=== PATIENT | male | born 1985 | race Caucasian/White ===

== ENCOUNTER 2021-01-11 05:38 | Outpatient (CLI) | payer BC ==
[~2021-01-11] VITALS: Ht 175.3 cm; Wt 90.8 kg
== END 2021-01-11 11:34 | disposition home or self-care (01) ==
LOC: PREOP 05:38
PROVIDERS: ATTEND Otolaryngology Otolaryngology/Facial Plastic Surgery
DX: Z01.818 Encounter for other preprocedural examination (principal)

== ENCOUNTER 2021-01-18 06:22 | Day surgery (SDC) | payer BC ==
[~2021-01-18] VITALS: Ht 175.3 cm; Wt 90.8 kg
[2021-01-18] VITALS (10 sets, daily range): BP systolic 105–138; BP diastolic 59–92
[2021-01-18] MEDS ORDERED: HYDROCORTISONE 100 MG/2 ML (Solu-CORTEF) VIAL IV ONE (07:00)
[2021-01-18] MEDS ORDERED: LACTATED RINGERS 1,000 ML IV PRN (07:00)
[2021-01-18] MEDS ORDERED: AMPICILLIN/SULBACTAM INJECTION 1.5 GM in NS (IVPB) 100 ML IV ONE (07:00)
[2021-01-18] MEDS ORDERED: LIDOCAINE/EPI 1%-1:100,000 (XYLOCAINE) 20ML ONE (07:03)
[2021-01-18] MEDS ORDERED: BSS 15 ML ONE (07:03)
[2021-01-18] MEDS ORDERED: PHENYLEPHRINE 0.5% NASAL SPR (NEO-SYNEPHRINE) REG ONE ×2 (07:03→10:15)
[2021-01-18] MEDS ORDERED: COCAINE HCL 4% 2 ML SYR ONE (07:03)
--- NOTE | 2021-01-18 07:05 | Progress Note-Pre Operative ---
Pre-Operative Progress Note H&P Reviewed The H&P was reviewed, patient examined and no changes noted. Date Seen by Provider: Jan 18, 2021 Time Seen by Provider: 06:30 Date H&P Reviewed: Jan 18, 2021 Time H&P Reviewed: 06:30 Pre-Operative Diagnosis: Right Chronic Sinusitis with Nasal Polyps, Hyper of Right INf Turb KATHARINA RUTLEDGE MD Jan 18, 2021 07:04
[2021-01-18] MEDS ORDERED: ONDANSETRON 4 MG/2 ML (SDV) Z0FRAN ONE (07:07)
[2021-01-18] MEDS ORDERED: fentaNYL INJ 100 MCG/2 ML AMP ONE (07:07)
[2021-01-18] MEDS ORDERED: LIDOCAINE PF 2% 5 ML (XYLOCAINE) VIAL ONE (07:07)
[2021-01-18] MEDS ORDERED: ROCURONIUM 10 MG/ML 5 ML SYRINGE IV ONE (07:07)
[2021-01-18] MEDS ORDERED: proPOfol 200 MG/20 ML (DIPRIVAN) VIAL IV ONE (07:07)
[2021-01-18] MEDS ORDERED: MIDAZOLAM 2 MG/2 ML (VERSED) VIAL ONE (07:07)
[2021-01-18] MEDS ORDERED: GLYCOPYRROLATE 0.2 MG/ML (ROBINUL) 2 ML VIAL ONE (08:09)
[2021-01-18] MEDS ORDERED: NEOSTIGMINE 3 MG/3 ML VIAL ONE (08:09)
--- NOTE | 2021-01-18 08:22 | Progress Note-Post Operative ---
Post-Operative Progess Note Surgeon (s)/Video Game Creator (s) Surgeon KATHARINA RUTLEDGE MD Video Game Creator n/a Pre-Operative Diagnosis Right Chronic Sinusitis with Nasal Polyps, Hyper of Right INf Turb Post-Operative Diagnosis same Post-Op Procedure Note Date of Procedure: Jan 18, 2021 Name of Procedure Performed: Right ESS, Right Partial REduction of the INferior Turbinates Description & Findings Description and Findings: n/a Anesthesia Type get Estimated Blood Loss minimal Packing none. Specimen(s) collected/removed right chrinic sinus disease KATHARINA RUTLEDGE MD Jan 18, 2021 08:21
[2021-01-18] MEDS ORDERED: predniSONE 20 MG TAB PO ONE (08:30)
[2021-01-18] MEDS ORDERED: D5 1/2 NS W/KCL 20 MEQ/L 1,000 ML IV SCH (08:30)
[2021-01-18] MEDS ORDERED: HYDROcodone/APAP 5 MG/325 MG (LORTAB) TAB PO PRN (08:30)
[2021-01-18] MEDS ORDERED: PROMETHAZINE INJ 25 MG/ML (PHENERGAN) AMP IVP PRN (08:30)
[2021-01-18] MEDS ORDERED: SEVOFLURANE (ULTANE) 15 ML INHAL SOLN ONE (09:16)
--- NOTE | 2021-01-18 13:15 | Anesthesia-General Post-Op ---
General Patient Condition Mental Status/LOC: Same as Preop Cardiovascular: Satisfactory Nausea/Vomiting: Absent Respiratory: Satisfactory Pain: Controlled Complications: Absent Post Op Complications Complications None Follow Up Care/Instructions Patient Instructions None needed. Anesthesia/Patient Condition Patient Condition Patient is doing well, no complaints, stable vital signs, no apparent adverse anesthesia problems. No complications reported per nursing. ALFONSO GALVAN CRNA Jan 18, 2021 13:15
== END 2021-01-18 11:25 ==
LOC: SDC 06:22
PROVIDERS: ATTEND Otolaryngology Otolaryngology/Facial Plastic Surgery
DX: J32.4 Chronic pansinusitis (principal); J34.3 Hypertrophy of nasal turbinates; J33.9 Nasal polyp, unspecified; R09.81 Nasal congestion; J33.0 Polyp of nasal cavity; K21.9 Gastro-esophageal reflux disease without esophagitis; Z87.891 Personal history of nicotine dependence
CPT/HCPCS: 87081; 87636